=== PATIENT | male | born 1955 | race Caucasian/White ===

== ENCOUNTER 2016-06-23 06:06 | Day surgery (SDC) | payer OTHER ==
[2016-06-20 10:07] VITALS: BMI 32.1
[2016-06-23] MEDS ORDERED: morphine CARPU-JECT 10 MG/1 ML DISP.SYRIN ONE (07:23)
[2016-06-23] MEDS ORDERED: BUPIVACAINE HCL/PF 0.5% (5MG/ML) 10 ML VIAL ONE (07:23)
[2016-06-23] MEDS ORDERED: ONDANSETRON 4 MG/2 ML VIAL IVPUSH PRN (08:50)
[2016-06-23] MEDS ORDERED: ALBUTEROL SO4 0.083% IH SOL 2.5 MG/3 ML VIAL.NEB. NEB ONE (08:50)
[2016-06-23] MEDS ORDERED: oxyCODONE HCL 5 MG TABLET PO PRN (08:50)
[2016-06-23] MEDS ORDERED: LACTATED RINGERS SOLUTION 1,000 ML IV SCH (09:00)
[2016-06-23 10:01] VITALS: TEMP 97.7
[2016-06-23 10:42] VITALS: BP 129/71; PULSE 71
--- NOTE | 2016-06-24 09:50 | OP ---
DATE OF OPERATION: 06/23/2016 PREOPERATIVE DIAGNOSIS: Torn medial meniscus to the right knee. 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 PROCEDURES PERFORMED: Operative arthroscopy to the right knee with partial medial and lateral meniscectomy, chondroplasty, synovectomy, and joint debridement. SURGEON: Juana Pedraza MD BLUEPRINT MACHINE OPERATOR: MICHAEL Lopez ANESTHESIOLOGIST: Emilie Almaguer MD ANESTHESIA TYPE: General anesthesia. DESCRIPTION OF PROCEDURE: Patient being brought into the operating room and gently transferred from the stretcher to the OR table with all bony prominences well padded. The right leg was prepped and draped in a sterile fashion. The patient was given intravenous antibiotics and copious irrigation throughout the procedure. Complete risks, benefits, and alternatives were discussed with the patient. Risks include, but not limited to, infection, bleeding, , paralysis, increased pain, and need for repeat surgeries. The patient asked questions, understood the nature of the procedure, and desired to proceed with surgical treatment. An appropriate time-out was conducted, which was inclusive of, but not limited to, the surgeon , type of surgery, correct side of surgery. Following sterile preparation and draping of the right leg, the leg was exsanguinated with the use of Esmarch bandage. Tourniquet was inflated to 350 mmHg. Suprapatellar medial and lateral joint line portals were used to introduce the arthroscope and arthroscopic instruments. The knee was examined. There was noted to be hypertrophic synovium in the suprapatellar pouch. Partial synovectomy was performed. The anterior surface of the patella had damage consistent with chondromalacia and this was removed using shaver and radiofrequency wand. The medial and lateral gutters were without plica or loose body. The medial meniscus was found to have a tear of the posterior horn, and this was smoothed using shaver and radiofrequency wand. Intercondylar region was noted to have joint debris, and joint debridement was performed. There was noted to be chondromalacia changes also in the intercondylar region. This was smoothed as well using a shaver and radiofrequency wand. The lateral meniscus was found to have a tear of the posterior horn and this was resected using shaver and radiofrequency wand. The knee joint was then copiously irrigated with sterile saline irrigant. The wounds were closed with 4-0 undyed Vicryl followed by Steri-Strips. Xeroform, 4 x 4's, sterile Webril Conrado bandage and knee immobilizer. The tourniquet was deflated after approximately 20 minutes of tourniquet time. There were no known intraoperative complications. JUANA PEDRAZA M.D. [id number] MTDD
--- NOTE | 2016-06-24 13:47 | PATH ---
Surgical Pathology Report Patient Name: JUAN CARLOS GOOD [facility]. Rec. #: [id number] /Age/Gender: 1955 (Age: 60) / M Account: [id number] Location: [facility] Taken: 06/23/2016 Received: 06/23/2016 Reported: 06/24/2016 Physicians: Naseem Pedraza M.D. Specimen(s) Received SHAVINGS RIGHT KNEE Clinical History Internal derangement right knee Final Diagnosis KNEE, RIGHT, ARTHROSCOPIC SHAVING: PORTION OF SYNOVIUM CONSISTENT WITH ARTHROSCOPIC SHAVING. Comment: Recommend correlation with clinical and radiologic findings and follow up as clinically indicated. Electronically Signed Olegario Castellanos M.D. Gross Description Received in formalin, labeled "shavings right knee," is a 0.2 x 0.2 x 0.1 cm aggregate of stanley-yellow soft tissue fragments. The formalin is filtered and the specimen is entirely submitted in one cassette. /06/23/201606/23/2016
== END 2016-06-23 10:50 | disposition home or self-care (01) ==
LOC: FASU 06:06
PROVIDERS: ATTEND Orthopaedic Surgery
PROC: 0SBC4ZZ Excision of Right Knee Joint, Percutaneous Endoscopic Approach (ICD-10-PCS; 2016-06-23)
PROC: 0MQN4ZZ Repair Right Knee Bursa and Ligament, Percutaneous Endoscopic Approach (ICD-10-PCS; 2016-06-23)
PROC: 0SBC4ZZ Excision of Right Knee Joint, Percutaneous Endoscopic Approach (ICD-10-PCS; principal; 2016-06-23 08:20)
DX: S83.241A Other tear of medial meniscus, current injury, right knee, initial encounter (principal); S83.281A Other tear of lateral meniscus, current injury, right knee, initial encounter; X58.XXXA Exposure to other specified factors, initial encounter; Y93.9 Activity, unspecified; Y92.9 Unspecified place or not applicable; M22.41 Chondromalacia patellae, right knee; M67.261 Synovial hypertrophy, not elsewhere classified, right lower leg
CPT/HCPCS: 88304-TC; 94760